=== PATIENT | female | born 1965 | race Caucasian/White ===

== ENCOUNTER 2017-02-21 14:15 | Outpatient (RCR) | payer OTHER ==
[~2017-02-21 14:15] MED LIST: MULTI VITAMINS1 TAB
== END 2017-05-22 ==
LOC: WSOH
DX: S46.912A Strain of unspecified muscle, fascia and tendon at shoulder and upper arm level, left arm, initial encounter (principal); W50.2XXA Accidental twist by another person, initial encounter; Y99.0 Civilian activity done for income or pay

== ENCOUNTER → 2017-05-23 | Outpatient (CLI) | payer BC | LOC: MC.RAD 09:20 | DX: Z12.31 Encounter for screening mammogram for malignant neoplasm of breast (principal) ==